=== PATIENT | female | born 1995 | race Caucasian/White ===

== ENCOUNTER 2023-12-10 10:23 | Outpatient (CLI) | payer BC | END 2023-12-10 10:24 | disposition home or self-care (01) | LOC: CSHULT 10:23 | PROVIDERS: ATTEND Obstetrics & Gynecology Gynecology | DX: N93.9 Abnormal uterine and vaginal bleeding, unspecified (principal); N83.02 Follicular cyst of left ovary; N83.01 Follicular cyst of right ovary | CPT/HCPCS: 76856 ==

== ENCOUNTER 2024-06-05 12:38 | Outpatient (CLI) | payer BC | END 2024-06-05 12:39 | disposition home or self-care (01) | LOC: CSHULT 12:38 | PROVIDERS: ATTEND Obstetrics & Gynecology Gynecology | DX: Z87.42 Personal history of other diseases of the female genital tract (principal) ==